=== PATIENT | female | born 1960 | race Caucasian/White ===

== ENCOUNTER → 2016-05-01 | Outpatient (CLI) | payer OTHER ==
[~2016-05-01] MED LIST: OMEP40CA2
[2016-05-01 08:47] LABS: BLOOD GAS CARBOXYHEMOGLOBIN 1.4 % (0-4); BLOOD GAS HCO3 24 mmol/L (22-26); BLOOD GAS METHEMOGLOBIN 1.1 % (0-2); BLOOD GAS O2 HGB SATURATION 92 % (90-100); BLOOD GAS OXYGEN CONTENT 17.7 Vol % (12.0-20.0); BLOOD GAS PCO2 39 mmHg (38-42); BLOOD GAS PO2 71 mmHg (61-120); BLOOD GAS TOTAL HGB 13.7 G/DL (12.0-16.0); CRITICAL VALUE NO; DRAW SITE RT RADIAL; FIO2 21 %; NUMBER OF ARTERIAL PUNCTURES 1; STAT NO; TEMP CORR TO 98.6; ULNAR PULSE PRESENT
--- NOTE | 2016-05-02 09:43 | RSPPFT ---
DATE OF PROCEDURE: 05/01/16 COMMENTS: Spirometry with FVC of 1.7 predicted 3.0, FEV1 of 1.4 predicted 2.2. Post-bronchodilator improvement is noted with FVC increasing to 2.1 and FEV1 to 1.8. Air trapping is present with RV at 2.4 predicted 1.7. IMPRESSION: On the basis of the above, patient has responsiveness to acutely inhaled bronchodilator implying some obstructive lung defect.
== END ==
LOC: HRSP 08:05
PROVIDERS: ATTEND Family Medicine
DX: R05 Cough (principal)
CPT/HCPCS: 36600; 82805; 94060; 94726; 94729

== ENCOUNTER → 2016-08-28 | Outpatient (CLI) | payer OTHER ==
[2016-08-28 08:57] LABS: BLOOD GAS BASE EXCESS -0.2 mmol/L (-2-2); BLOOD GAS CARBOXYHEMOGLOBIN 1.3 % (0-4); BLOOD GAS HCO3 24 mmol/L (22-26); BLOOD GAS O2 HGB SATURATION 93 % (90-100); BLOOD GAS OXYGEN CONTENT 17.1 Vol % (12.0-20.0); BLOOD GAS PCO2 37 mmHg (38-42); BLOOD GAS PO2 74 mmHg (61-120); BLOOD GAS TOTAL HGB 13.1 G/DL (12.0-16.0); CRITICAL VALUE NO; DRAW SITE RT RADIAL; FIO2 21 %; NUMBER OF ARTERIAL PUNCTURES 1; STAT NO; TEMP CORR TO 98.6; ULNAR PULSE PRESENT
--- NOTE | 2016-08-29 09:51 | RSPPFT ---
DATE OF PROCEDURE: 08/28/16 COMMENTS: Spirometry with FVC of 2.4 predicted 3.0, FEV1 of 2.0 predicted 2.2, FEV1/FVC ratio 82% predicted 74%. Lung volumes are essentially within the predicted range. DLCO is 74% of predicted. IMPRESSION: On the basis of the above, patient has flow values, lung volumes and DLCO within the predicted range.
== END ==
LOC: HRSP 08:08
PROVIDERS: ATTEND Internal Medicine Pulmonary Disease
DX: R05 Cough (principal)
CPT/HCPCS: 36600; 82805; 94060; 94620; 94726; 94729